=== PATIENT | male | born 1975 | race Caucasian/White ===

== ENCOUNTER 2025-08-25 12:03 | Emergency (ER) | payer OTHER, SELFPAY ==
[2025-08-25 12:03] VITALS: BP 119/93; PULSE 98; RESP 16; TEMP 35.7; O2SAT 98; BMI 34.7
[2025-08-25 12:34] VITALS: BP 132/86; PULSE 86; RESP 18; TEMP 36.9; O2SAT 97
--- NOTE | 2025-08-25 12:38 | EX.ED.DYSGE1 ---
HPI History of Present Illness Chief Complaint: Abd Pain Informant: patient Narrative Narrative: 50-year-old male presenting to the emergency room with the chief complaint of diarrhea. Patient states on Monday he has had a company function and he had a catered meal. He states that he developed diarrhea several hours after eating. He states that several other coworkers also felt like the food was not good. States that he continues to have diarrhea several times an hour throughout the weekend. He denies any significant abdominal pain or lack of appetite. No reported fevers. No blood in the stool. No vomiting. He also states that he has some nasal congestion patient states he was going to go to urgent care but because of insurance reasons or lack thereof he came here. He has been using some Em and fluticasone. [facility] Medical History Former smoker Encounter for examination required by Department of Transportation (DOT) Home Medications ?Medication ?Instructions ?Recorded ?Last Taken ?Type ascorbic acid (vitamin C) 500 mg 1,000 mg PO BID 11/25/24 08/25/25 History capsule mecobalamin (vitamin B12) 500 mcg 5,000 mcg PO DAILY 11/25/24 08/25/25 History chewable tablet testosterone cypionate 200 mg/mL 200 mg IM Q2W 11/25/24 07/28/25 History intramuscular oil atogepant 60 mg tablet (Qulipta) 60 mg PO DAILY 08/25/25 08/25/25 History azithromycin 500 mg tablet 500 mg PO DAILY 5 days #5 tabs 08/25/25 Unknown Rx cholecalciferol (vitamin D3) 125 125 mcg PO DAILY 08/25/25 Unknown History mcg (5,000 unit) capsule elderberry fruit 200 mg capsule 200 mg PO DAILY 08/25/25 08/25/25 History fexofenadine 180 mg tablet 180 mg PO BID 08/25/25 08/25/25 History (Em Allergy) fluticasone propionate 50 1 spray intranasal BID 08/25/25 08/25/25 History mcg/actuation nasal spray,suspension multivit,Ca,min-iron 8 mg-folic 1 tab PO DAILY 08/25/25 Unknown History acid 200 mcg-lycopene 600 mcg tablet (Men's Daily Multivitamin) zinc sulfate 50 mg zinc (220 mg) 50 mg PO DAILY 08/25/25 Unknown History capsule (Zinc-220) Allergy/AdvReac Type Severity Reaction Status Date / Time Sulfa (Sulfonamide Allergy Other Verified 08/25/25 12:03 Antibiotics) Social History Smoking Status: Former smoker Smokeless tobacco user: chewing tobacco alcohol intake: never ROS ROS ED Constitutional Constitutional ED: Denies chills, fever(s) or weight loss Eyes Eyes: Denies change in vision or diplopia ENT ENT ED: Reports rhinorrhea; Denies ear pain or sore throat Cardiovascular Cardiovascular: Denies chest pain, orthopnea, palpitations or racing heartbeat Respiratory/Chest Respiratory/Chest: Reports cough; Denies dyspnea or orthopnea Gastrointestinal Gastrointestinal: Reports diarrhea; Denies abdominal pain, nausea or vomiting Genitourinary Genitourinary ED: Denies dysuria, hematuria or urinary frequency Musculoskeletal Musculoskeletal: Denies arthralgias or myalgias Integumentary Denies abscess or rash Neurologic Neurologic: Denies headache(s) or weakness Psychiatric Psychiatric: Denies anxiety, depression, suicidal ideation or suicidal thoughts Endocrine Endocrinology: Denies polydipsia, polyphagia or polyuria Allergic/Immunologic Allergic/Immunologic ED: Denies mouth swelling, tongue swelling or urticaria EXAM Physical Exam Const Vital Signs: 08/25/25 12:03 08/25/25 12:34 Temperature 96.3 F L 98.4 F Temperature Source Temporal Pulse Rate 98 86 Respiratory Rate 16 18 Blood Pressure 119/93 H 132/86 H Blood Pressure Mean 101 101 Pulse Ox 98 97 Positive well nourished and well developed General Appearance ED: well developed HEENT Reports normocephalic, head/scalp atraumatic and moist mucous membranes HEENT Narrative: Mild turbinate edema mild bilateral ear canal wax Eyes PERRL and EOMs intact bilaterally Neck no lymphadenopathy, supple and no JVD Resp normal respiratory effort and clear to auscultation bilaterally Cardio regular rate, regular rhythm and no murmurs GI normal to inspection, nondistended, normoactive bowel sounds and non-tender Palpation: soft Back/Spine no CVA tenderness and normal ROM Extremity normal to inspection General Extremety ED: Negative for edema General Extremity: Negative for edema Neuro oriented x3 and CN's II-XII intact bilaterally Sensorium / Orientation: alert Motor Exam: strength 5/5 throughout Psych mental status grossly normal Mood & Affect: Negative for depressed or tearful Skin no rashes or lesions noted and no wounds MDM MDM MDM Narrative Medical decision making narrative: Differential diagnosis includes but not limited to viral syndrome viral URI sinusitis infectious diarrhea bacterial versus viral colitis diverticulitis pneumonia Patient clinically appears well. He has a benign abdomen. Believe his symptoms are most likely viral and supportive care would be indicated. He is concerns with the diarrhea that this could be food poisoning and bacterial in nature so I think it is not unreasonable to give azithromycin. Patient to follow-up if not improving monitor for worsening symptoms and return if needed History & Record Review Discussion w/independent historian: Patient Discharge Plan Triage Chief Complaint: Abd Pain ED Provider: Jessee Lowry Dx/Rx/DC Orders Clinical Impression: Diarrhea, URI (upper respiratory infection) Instructions: ED Diarrhea, Unknown Cause, ED URI, Viral, No Abx (Adult) Prescriptions: New azithromycin 500 mg tablet 500 mg PO DAILY 5 Days Qty: 5 0RF No Action testosterone cypionate 200 mg/mL oil 200 mg IM Q2W mecobalamin (vitamin B12) 500 mcg tablet,chewable 5,000 mcg PO DAILY ascorbic acid (vitamin C) 500 mg capsule 1,000 mg PO BID fluticasone propionate 50 mcg/actuation spray,suspension 1 spray INTRANASAL BID cholecalciferol (vitamin D3) 125 mcg (5,000 unit) capsule 125 mcg PO DAILY Qulipta 60 mg tablet 60 mg PO DAILY Men's Daily Multivitamin 8 mg iron- 200 mcg-600 mcg tablet 1 tab PO DAILY elderberry fruit 200 mg capsule 200 mg PO DAILY zinc sulfate [Zinc-220] 50 mg zinc (220 mg) capsule 50 mg PO DAILY fexofenadine [Em Allergy] 180 mg tablet 180 mg PO BID Primary Care Provider: Care Physician,No Primary Print Language: Albanian Disposition Disposition: Home, Self Care Discharge Date/Time: 08/25/25 12:42
== END 2025-08-25 12:42 | disposition home or self-care (01) ==
LOC: ED 12:38
PROVIDERS: Emergency Provider Emergency Medicine; Visit Provider Emergency Medicine
DX: R19.7 Diarrhea, unspecified (principal); J06.9 Acute upper respiratory infection, unspecified; F17.220 Nicotine dependence, chewing tobacco, uncomplicated
CPT/HCPCS: 99282

== ENCOUNTER → 2025-08-26 | Outpatient (CLI) | payer OTHER, SELFPAY ==
[2025-08-26 11:41] LABS: Hematocrit 48.2 % (40-54); Hemoglobin 16.8 g/dL (13.0-16.5); Immature Granulocytes Count 0.040 X10^3/uL (0.0-0.0); Mean Corp Hgb Conc 34.9 g/dL (32-36); Mean Corpuscular Volume 89.9 fL (80-94); Mean Platelet Vol. 9.4 fl (6.2-12.0); NRBC Flagged by Analyzer 0 % (0-5); Platelet Count 288 K/mm3 (150-450); RBC Distribution Width CV 12.7 % (11.6-14.6); RBC Distribution Width SD 42.1 fl (35.1-43.9); Red Blood Count 5.36 M/mm3 (4.6-6.2); White Blood Count 9.6 K/mm3 (4.4-11.0)
[2025-08-26 12:09] LABS: AST(SGOT) 24 U/L (<=37); Alanine Aminotransfer ALT/SGPT 35 U/L (<=46); Albumin, Serum 4.3 g/dL (3.5-5.0); Alkaline Phosphatase 59 U/L (40-129); Anion Gap 12 (5-15); BUN 16 mg/dL (4-19); BUN/Creat Ratio 19.8 RATIO (10-20); Calcium,Total 9.5 mg/dL (7.6-11.0); Carbon Dioxide 26.8 mmol/L (21.0-32.0); Chloride 103 mmol/L (98-108); Follicle Stimulating Hormone 1.6 mIU/mL; Globulin 3.4 g/dL (2.2-4.2); Glucose 97 mg/dL (70-99); PSA,Total- Diagnostic 0.80 ng/mL (0.00-4.00); Potassium 3.5 mmol/L (3.3-5.1)
[2025-08-30 15:08] LABS: Testosterone, % Free 2.57 % (1.50-4.20); Testosterone, Free 3.75 ng/dL (5.00-21.00)
== END | disposition home or self-care (01) ==
LOC: VSLAB 10:24
DX: R89.1 Abnormal level of hormones in specimens from other organs, systems and tissues (principal); G43.701 Chronic migraine without aura, not intractable, with status migrainosus; N40.0 Benign prostatic hyperplasia without lower urinary tract symptoms
CPT/HCPCS: 36415; 80053; 83001; 83002; 84153; 84402; 84403; 85025